=== PATIENT | female | born 1965 | race Caucasian/White ===

== ENCOUNTER 2018-06-03 17:02 | Outpatient (REF) | payer OTHER, SELFPAY ==
--- NOTE | 2018-06-03 16:00 | ENDOMET_PTH ---
PATIENT: KATHY DAVIS LOC: [facility] U#:[id number] AGE/SX: 53/F ROOM: RE06/03/[address]: Robert Allen MD : [id number] BED: DIS: 06/03/2018 SPEC #: [id number] RECD: 06/03/18 18:44 STATUS: ARY REQ #: [id number] SANDIP: 06/03/18 16:[address]: Robert Allen DEPT: Surgical Specimen RECD BY: Tawana Tay ENTERED: 06/03/18 18:45 SP TYPE: Endomet OTHR DR: Dionisio Martin MD Tissues: 1 - ENDOMETRIUM BX/CURRETTE Procedures: GROSS AND MICRO LEVEL 4 Comments: [id number]
== END 2018-06-03 17:22 ==
LOC: LBN 17:02
PROVIDERS: PCP Family Medicine; Visit Provider Obstetrics & Gynecology
DX: N85.8 Other specified noninflammatory disorders of uterus (principal); N92.0 Excessive and frequent menstruation with regular cycle
CPT/HCPCS: 88305

== ENCOUNTER 2018-06-14 09:08 | Outpatient (CLI) | payer OTHER, SELFPAY ==
[2018-06-14 13:19] LABS: Abs Immature Grans 0.01 k/cumm (0.0-0.09); Absolute Basophil Count 0.03 k/cumm (0.0-0.2); Absolute Eosinophil Count 0.14 k/cumm (0.0-0.7); Absolute Lymphocyte Count 1.78 k/cumm (1.2-3.4); Absolute Monocyte Count 0.61 k/cumm (0.11-0.7); Absolute Neutrophil Count 3.35 k/cumm (1.2-6.7); Basophils % 0.5; Eosinophils % 2.4; HCT 35.9 % (36.0-46.0); HGB 11.7 g/dL (12.0-15.5); Immature Grans % 0.2; Lymphocytes % 30.1; Mean Corp. HGB Concentration 32.6 g/dL (32.0-36.0); Mean Corpuscular Hemoglobin 33.3 pg (27.0-33.0); Mean Corpuscular Volume 102.3 fL (80-95); Mean Platelet Volume 10.3 fL (8.0-11.0); Monocytes % 10.3; Neutrophils % 56.5; Platelet Count 247 x1000/uL (130-400); RBC 3.51 m/cumm (4.00-5.20); RBC Distribution Width 13.7 % (11.7-14.6); White Blood Cell Count 5.92 k/cumm (4.4-10.8)
[2018-06-14 13:35] LABS: ALT 54 U/L (12-78); AST 43 U/L (15-37); Albumin 3.4 g/dL (3.4-5.0); Alkaline Phosphatase 72 U/L (46-116); Anion Gap 8.8 mmol/L (3-11); BUN 9 mg/dL (7-18); Bilirubin, Total 0.3 mg/dL (0.2-1.0); CO2 28.2 mmol/L (21.0-32.0); CREATININE 0.79 mg/dL (0.55-1.02); Chloride 105 mmol/L (98-107); Glucose 107 mg/dL (70-100); Potassium 3.5 mmol/L (3.5-5.1); Sodium 142 mmol/L (136-145); Total Protein 7.3 g/dL (6.4-8.2)
== END 2018-06-14 09:28 ==
PROVIDERS: PCP Family Medicine; Visit Provider Internal Medicine Medical Oncology
DX: C49.A3 Gastrointestinal stromal tumor of small intestine (principal)
CPT/HCPCS: 36415; 80053; 85025

== ENCOUNTER 2018-07-24 19:36 | Emergency (ER) | payer OTHER, SELFPAY ==
[2018-07-24 19:45] VITALS: BP 140/85; PULSE 85; RESP 20; TEMP 36.6; O2SAT 99
--- NOTE | 2018-07-24 19:59 | W.ED.GENAD ---
Discharge Plan Disposition Patient Disposition: HOME Condition: Fair Discharge Details Chief Complaint: Orthopedic Clinical Impression: Left wrist sprain Reason For Visit: left arm pain Primary Care Provider: Dionisio Martin ED Provider: Soheila Gruber Home Meds and New Rx's Prescriptions: Continue norethindrone acetate [Aygestin] 5 mg tablet 10 mg PO BID Qty: 90 RF: 1 multivitamin [Daily Multi-Vitamin] 1 EACH tablet 1 ea PO DAILY Qty: 90 RF: 3 imatinib [Gleevec] 400 MG tablet 1 tab PO DAILY RF: 0 PROVENTIL HFA 18 GM HFA.AER.AD 1 - 2 puff Inhalation Q4H PRN Qty: 1 RF: 0 fluticasone 16 GM spray,suspension 2 spry NS DAILY Qty: 3 RF: 3 fluoxetine [Prozac] 40 MG capsule 40 mg PO DAILY Qty: 90 RF: 3 triamterene-hydrochlorothiazid [Dyazide] 1 EACH capsule 1 tab-cap PO DAILY Qty: 90 RF: 3 lisinopril 10 MG tablet 10 mg PO DAILY 90 Days Qty: 90 RF: 3 fluoxetine [Prozac] 20 MG capsule 20 mg PO DAILY Qty: 90 RF: 3 fenofibrate nanocrystallized [Tricor] 48 MG tablet 48 mg PO DAILY Qty: 90 RF: 3 meclizine 25 mg tablet 25 mg PO TID PRNQty: 30 RF: 2 ferrous sulfate 325 MG tablet 325 mg PO DAILY Qty: 30 RF: 3 Discharge Instructions Instructions: Wrist Sprain (ED) Additional Instructions: Keep splint on until evaluated by primary care. Encourage rest, ice, elevation. Tylenol and/or Ibuprofen as needed for discomfort. If you develop new/worsening symptoms please seek care urgently once again. Please follow up with primary care in one week for reevaluation of your scaphoid discomfort. Referrals: Dionisio Martin [Primary Care Provider] - Medical Decision Making Patient is a 53 year old RHD female, accompanied by , with c/c of left wrist pain after FOOSH. Reprots that she slipped in the mud while [id number]. Denies other injury. No LOC, did not strike her head. Denies SOB, CP, pain in neck or her back. Denies altered sensation. Pain primarily along the lateral aspect. I am concerned that she is mildly tender over the snuff box, pain is maximal over the distal radius. Tripp has history of left wrist fracture 30 years ago. Plan to obtain XR. Patient has on wedding rings with notable swelling of the affected digit. Unable to remove rings. Discussed with her the need to cut these. She is in agreement. Nursing staff and myself cut wedding rings, patient has good capillary refill of the affected digit. She tolerated this well. Patient given Tylenol and Ibuprofen for discomfort. Obtained XR of affected wrist with navicular view. Reviewed by radiologist. No acute osseous findings noted. Soft tissue swelling noted, especially about the fourth digit. Discussed findings with the patient. No acute abnormality noted. However, as she is tender over the snuff box, plan to place patient in a thumb spica until she is able to be reevaluated in one week by PCP. We discussed concerning pathology. Encouraged rest, ice, elevation. Tylenol and /or Ibuprofen as needed for discomfort. Advised she seek care urgently once again with any new/worsening symptoms. All of her questions and concerns were addressed, she is in agreement with this plan. [facility] General Mode of arrival: ambulatory. Date/Time Provider Initiated Documentation: 07/24/18 19:37. Limitations to Documentation: no limitations. Information obtained by: patient and family. History of Present Illness 53 year old F presents to the emergency department with the chief complaint of left wrist pain after FOOSH, described as moderate, with intensity rated at 8. Quality is described as sharp, and is localized to the left and upper extremity. Patient reports no radiation. Patient started experiencing this minute(s) and it has been constant. No relieving factors improve symptom(s), Movement worsens symptoms . Patient notes no other symptoms.; denies chest pain, fever/chills, headaches, nausea/vomiting, rash, syncope and weakness. Patient did receive the following treatments prior to arrival, none Related Data Home Medications Medication Instructions Recorded Confirmed multivitamin [Daily Multi-Vitamin] 1 ea PO DAILY #90 tab-cap 09/23/14 06/14/18 ferrous sulfate 325 mg PO DAILY #30 tab 01/12/16 06/14/18 imatinib [Gleevec] 1 tab PO DAILY 07/13/17 06/14/18 fluticasone 2 spry NS DAILY #3 bottle 09/11/17 06/14/18 fenofibrate nanocrystallized 48 mg PO DAILY #90 tab-cap 03/29/18 06/14/18 [Tricor] fluoxetine [Prozac] 20 mg PO DAILY #90 tab-cap 03/29/18 06/14/18 fluoxetine [Prozac] 40 mg PO DAILY #90 tab-cap 03/29/18 06/14/18 lisinopril 10 mg PO DAILY 90 Days #90 tab-cap 03/29/18 06/14/18 triamterene-hydrochlorothiazid 1 tab-cap PO DAILY #90 tab-cap 03/29/18 06/14/18 [Dyazide] norethindrone acetate 5 mg tablet 10 mg PO BID #90 tab 06/03/18 06/14/18 meclizine 25 mg tablet 25 mg PO TID PRN #30 tab-cap 06/14/18 06/14/18 Previous Rx's Medication Instructions Recorded ferrous sulfate 325 mg PO DAILY #30 tab 01/12/16 fluticasone 2 spry NS DAILY #3 bottle 09/11/17 fenofibrate nanocrystallized 48 mg PO DAILY #90 tab-cap 03/29/18 [Tricor] fluoxetine [Prozac] 20 mg PO DAILY #90 tab-cap 03/29/18 fluoxetine [Prozac] 40 mg PO DAILY #90 tab-cap 03/29/18 lisinopril 10 mg PO DAILY 90 Days #90 tab-cap 03/29/18 triamterene-hydrochlorothiazid 1 tab-cap PO DAILY #90 tab-cap 03/29/18 [Dyazide] norethindrone acetate 5 mg tablet 10 mg PO BID #90 tab 06/03/18 Allergies Allergy/AdvReac Type Severity Reaction Status Date / Time No Known Allergies Allergy Unverified 06/14/18 15:14 General Stated Complaint: Orthopedic COLEEN: 3 Review of Systems Constitutional Reports as per HPI, Denies headache(s) and Denies weakness ENT Denies headache(s) Cardiovascular Reports as per HPI and Denies syncope Respiratory Reports as per HPI and Denies cough Musculoskeletal Reports as per HPI, Denies numbness and Denies tingling Integumentary/Breasts Reports as per HPI, Denies erythema, Denies rash, Denies skin swelling and Denies unusual bruising Neurologic Denies syncope, Denies headache(s), Denies focal weakness, Denies numbness, Denies radicular pain, Denies tingling and Denies weakness PFSH Family History Mother Diabetes Father COPD (chronic obstructive pulmonary disease) Brother Cerebrovascular accident Social History Smoking/Tobacco Use Status: Never Surgical History Dilation and curettage Endometrial Ablation (~2007) Excision, Tumor (06/20/16) Ligation of fallopian tube Exam Const General: cooperative, healthy appearing, uncomfortable (patient appears uncomfortable, is splinting her left wrist), no acute distress, well developed and well groomed Nutritional Appearance: well nourished Orientation: alert and awake HENMT Head: normal to inspection and normocephalic Ears: hearing grossly normal bilaterally Eyes General: appearance normal, both eyes and all related structures Resp Effort & Inspection: normal respiratory effort, able to speak in complete sentences and no respiratory distress Cardio Rate: regular rate Rhythm: regular rhythm Skin General skin exam: no rashes or lesions noted Lesions: no lesions Rashes: no rashes Trauma: no lacerations or abrasions Neuro General: alert and awake Cognition: normal cognition Speech: speech normal Gait: normal gait Sensory Exam: no sensory deficits noted Extrem Left upper extremity: normal capillary refill and hand (no pain with palpation of the hand); abnormal to inspection (patient has swelling and pain over the radial aspect of the left wrist. Limited ROM secondary to pain. Minimal pain over the snuff box, pain worse proximal to this but reports it radiates into the thumb. Sensation intact. Swelling noted into the ring finger, has rings on. ), no cyanosis and joint enlargement noted Psych Appearance: grossly normal and well kempt Mental Status: mental status grossly normal Speech and Movement: speech and movement normal Course Vital Signs Temperature 36.6 C 07/24/18 19:45 Pulse 85 07/24/18 19:45 Respiratory Rate 20 07/24/18 19:45 Blood Pressure 140/85 07/24/18 19:45 Pulse Oximetry 99 07/24/18 19:45 Temperature 36.6 C 07/24/18 19:45 Temperature Source Temporal Artery Scan 07/24/18 19:45 Pulse 85 07/24/18 19:45 Respiratory Rate 20 07/24/18 19:45 Respiratory Effort 07/24/18 19:47 Blood Pressure 140/85 07/24/18 19:45 Blood Pressure Position Supine 07/24/18 19:45 Pulse Oximetry 99 07/24/18 19:45 Oxygen Delivery Method Room Air 07/24/18 19:45 Oxygen Flow Rate 0 07/24/18 19:45 Pain Level 8 07/24/18 19:45
--- NOTE | 2018-07-24 20:02 | ED.GENADUL_ITS ---
Discharge Plan Disposition Patient Disposition: HOME Condition: Fair Discharge Details Chief Complaint: Orthopedic Clinical Impression: Left wrist sprain Reason For Visit: left arm pain Primary Care Provider: Dionisio Martin ED Provider: Soheila Gruber Home Meds and New Rx's Prescriptions: Continue norethindrone acetate [Aygestin] 5 mg tablet 10 mg PO BID Qty: 90 RF: 1 multivitamin [Daily Multi-Vitamin] 1 EACH tablet 1 ea PO DAILY Qty: 90 RF: 3 imatinib [Gleevec] 400 MG tablet 1 tab PO DAILY RF: 0 PROVENTIL HFA 18 GM HFA.AER.AD 1 - 2 puff Inhalation Q4H PRN Qty: 1 RF: 0 fluticasone 16 GM spray,suspension 2 spry NS DAILY Qty: 3 RF: 3 fluoxetine [Prozac] 40 MG capsule 40 mg PO DAILY Qty: 90 RF: 3 triamterene-hydrochlorothiazid [Dyazide] 1 EACH capsule 1 tab-cap PO DAILY Qty: 90 RF: 3 lisinopril 10 MG tablet 10 mg PO DAILY 90 Days Qty: 90 RF: 3 fluoxetine [Prozac] 20 MG capsule 20 mg PO DAILY Qty: 90 RF: 3 fenofibrate nanocrystallized [Tricor] 48 MG tablet 48 mg PO DAILY Qty: 90 RF: 3 meclizine 25 mg tablet 25 mg PO TID PRNQty: 30 RF: 2 ferrous sulfate 325 MG tablet 325 mg PO DAILY Qty: 30 RF: 3 Discharge Instructions Instructions: Wrist Sprain (ED) Additional Instructions: Keep splint on until evaluated by primary care. Encourage rest, ice, elevation. Tylenol and/or Ibuprofen as needed for discomfort. If you develop new/ worsening symptoms please seek care urgently once again. Please follow up with primary care in one week for reevaluation of your scaphoid discomfort. Referrals: Dionisio Martin [Primary Care Provider] - Medical Decision Making Patient is a 53 year old RHD female, accompanied by , with c/c of left wrist pain after FOOSH. 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 Denies other injury. No LOC, did not strike her head. Denies SOB, CP , pain in neck or her back. Denies altered sensation. Pain primarily along the lateral aspect. I am concerned that she is mildly tender over the snuff box , pain is maximal over the distal radius. Tripp has history of left wrist fracture 30 years ago. Plan to obtain XR. Patient has on wedding rings with notable swelling of the affected digit. Unable to remove rings. Discussed with her the need to cut these. She is in agreement. Nursing staff and myself cut wedding rings, patient has good capillary refill of the affected digit. She tolerated this well. Patient given Tylenol and Ibuprofen for discomfort. Obtained XR of affected wrist with navicular view. Reviewed by radiologist. No acute osseous findings noted. Soft tissue swelling noted, especially about the fourth digit. Discussed findings with the patient. No acute abnormality noted. However, as she is tender over the snuff box, plan to place patient in a thumb spica until she is able to be reevaluated in one week by PCP. We discussed concerning pathology. Encouraged rest, ice, elevation. Tylenol and /or Ibuprofen as needed for discomfort. Advised she seek care urgently once again with any new/ worsening symptoms. All of her questions and concerns were addressed, she is in agreement with this plan. [facility] General Mode of arrival: ambulatory . Date/Time Provider Initiated Documentation: 07/24/18 19:37 . Limitations to Documentation: no limitations . Information obtained by: patient and family . History of Present Illness 53 year old F presents to the emergency department with the chief complaint of left wrist pain after FOOSH, described as moderate, with intensity rated at 8. Quality is described as sharp, and is localized to the left and upper extremity. Patient reports no radiation. Patient started experiencing this minute(s) and it has been constant. No relieving factors improve symptom(s) , Movement worsens symptoms . Patient notes no other symptoms.; denies chest pain, fever/chills, headaches, nausea/vomiting, rash, syncope and weakness. Patient did receive the following treatments prior to arrival, none Related Data Home Medications Medication Instructions Recorded Confirmed multivitamin [Daily Multi-Vitamin] 1 ea PO DAILY #90 tab-cap 09/23/14 06/14/18 ferrous sulfate 325 mg PO DAILY #30 tab 01/12/16 06/14/18 imatinib [Gleevec] 1 tab PO DAILY 07/13/17 06/14/18 fluticasone 2 spry NS DAILY #3 bottle 09/11/17 06/14/18 fenofibrate nanocrystallized 48 mg PO DAILY #90 tab-cap 03/29/18 06/14/18 [Tricor] fluoxetine [Prozac] 20 mg PO DAILY #90 tab-cap 03/29/18 06/14/18 fluoxetine [Prozac] 40 mg PO DAILY #90 tab-cap 03/29/18 06/14/18 lisinopril 10 mg PO DAILY 90 Days #90 tab-cap 03/29/18 06/14/18 triamterene-hydrochlorothiazid 1 tab-cap PO DAILY #90 tab-cap 03/29/18 06/14/18 [Dyazide] norethindrone acetate 5 mg tablet 10 mg PO BID #90 tab 06/03/18 06/14/18 meclizine 25 mg tablet 25 mg PO TID PRN #30 tab-cap 06/14/18 06/14/18 Previous Rx's Medication Instructions Recorded ferrous sulfate 325 mg PO DAILY #30 tab 01/12/16 fluticasone 2 spry NS DAILY #3 bottle 09/11/17 fenofibrate nanocrystallized 48 mg PO DAILY #90 tab-cap 03/29/18 [Tricor] fluoxetine [Prozac] 20 mg PO DAILY #90 tab-cap 03/29/18 fluoxetine [Prozac] 40 mg PO DAILY #90 tab-cap 03/29/18 lisinopril 10 mg PO DAILY 90 Days #90 tab-cap 03/29/18 triamterene-hydrochlorothiazid 1 tab-cap PO DAILY #90 tab-cap 03/29/18 [Dyazide] norethindrone acetate 5 mg tablet 10 mg PO BID #90 tab 06/03/18 Allergies Allergy/AdvReac Type Severity Reaction Status Date / Time No Known Allergies Allergy Unverified 06/14/18 15:14 General Stated Complaint: Orthopedic COLEEN: 3 Review of Systems Constitutional Reports as per HPI, Denies headache(s) and Denies weakness ENT Denies headache(s) Cardiovascular Reports as per HPI and Denies syncope Respiratory Reports as per HPI and Denies cough Musculoskeletal Reports as per HPI, Denies numbness and Denies tingling Integumentary/Breasts Reports as per HPI, Denies erythema, Denies rash, Denies skin swelling and Denies unusual bruising Neurologic Denies syncope, Denies headache(s), Denies focal weakness, Denies numbness, Denies radicular pain, Denies tingling and Denies weakness PFSH Family History Mother Diabetes Father COPD (chronic obstructive pulmonary disease) Brother Cerebrovascular accident Social History Smoking/Tobacco Use Status: Never Surgical History Dilation and curettage Endometrial Ablation (~2007) Excision, Tumor (06/20/16) Ligation of fallopian tube Exam Const General: cooperative, healthy appearing, uncomfortable (patient appears uncomfortable, is splinting her left wrist), no acute distress, well developed and well groomed Nutritional Appearance: well nourished Orientation: alert and awake HENMT Head: normal to inspection and normocephalic Ears: hearing grossly normal bilaterally Eyes General: appearance normal, both eyes and all related structures Resp Effort & Inspection: normal respiratory effort, able to speak in complete sentences and no respiratory distress Cardio Rate: regular rate Rhythm: regular rhythm Skin General skin exam: no rashes or lesions noted Lesions: no lesions Rashes: no rashes Trauma: no lacerations or abrasions Neuro General: alert and awake Cognition: normal cognition Speech: speech normal Gait: normal gait Sensory Exam: no sensory deficits noted Extrem Left upper extremity: normal capillary refill and hand (no pain with palpation of the hand); abnormal to inspection (patient has swelling and pain over the radial aspect of the left wrist. Limited ROM secondary to pain. Minimal pain over the snuff box, pain worse proximal to this but reports it radiates into the thumb. Sensation intact. Swelling noted into the ring finger, has rings on. ), no cyanosis and joint enlargement noted Psych Appearance: grossly normal and well kempt Mental Status: mental status grossly normal Speech and Movement: speech and movement normal Course Vital Signs Temperature 36.6 C 07/24/18 19:45 Pulse 85 07/24/18 19:45 Respiratory Rate 20 07/24/18 19:45 Blood Pressure 140/85 07/24/18 19:45 Pulse Oximetry 99 07/24/18 19:45 Temperature 36.6 C 07/24/18 19:45 Temperature Source Temporal Artery Scan 07/24/18 19:45 Pulse 85 07/24/18 19:45 Respiratory Rate 20 07/24/18 19:45 Respiratory Effort 07/24/18 19:47 Blood Pressure 140/85 07/24/18 19:45 Blood Pressure Position Supine 07/24/18 19:45 Pulse Oximetry 99 07/24/18 19:45 Oxygen Delivery Method Room Air 07/24/18 19:45 Oxygen Flow Rate 0 07/24/18 19:45 Pain Level 8 07/24/18 19:45
[2018-07-24] MEDS: Ibuprofen 600 MG TAB (20:04)
[2018-07-24] MEDS: Acetaminophen 500 MG TAB 1000 MG (20:04)
--- NOTE | 2018-07-24 20:08 | DI.RAD_ITS ---
SYMPTOMS/DIAGNOSIS: FALL ON OUTSTRETCHED HAND LEFT WRIST: There is no evidence of a fracture or dislocation.
--- NOTE | 2018-07-24 20:46 | DI.VRAD_ITS ---
EXAM: XR Left Wrist Complete, 3 or more Views EXAM DATE/TIME: 07/24/2018 7:59 PM CLINICAL HISTORY: 53 years old, female; Injury or trauma; Fall; Initial encounter; Swelling (edema); Wrist; Left; Patient HX: S/P fall on out stretched arm. TECHNIQUE: XR Left wrist 3 or more views. COMPARISON: No relevant prior studies available. FINDINGS: Bones/joints: No acute fracture or subluxation. Soft tissues: Soft tissue swelling is noted especially about the fourth digit. IMPRESSION: No acute osseous findings. Dictated and Authenticated by: Tin Good MD. Ordering:CELIA MASESY MD
== END 2018-07-24 21:06 | disposition home or self-care (01) ==
PROVIDERS: Emergency Provider Physician Assistant; PCP Family Medicine
DX: S63.502A Unspecified sprain of left wrist, initial encounter (principal); W01.0XXA Fall on same level from slipping, tripping and stumbling without subsequent striking against object, initial encounter
CPT/HCPCS: 29125; 99283; 73110; 99282; L3807

== ENCOUNTER 2018-08-05 14:54 | Outpatient (CLI) | payer OTHER, SELFPAY ==
--- NOTE | 2018-08-05 14:38 | DI.RAD_ITS ---
SYMPTOM/DIAGNOSIS: LEFT WRIST INJURY, F/U FILMS TO ? SCAPHOID FX S69.92XA LEFT WRIST: Four views. Comparison 07/24/18 On the lateral view there is a lucency seen at the posterior and distal aspect of the radius suspicious for a nondisplaced fracture. No other fracture or dislocation is seen in the wrist. The soft tissues are unremarkable. IMPRESSION: Question of a nondisplaced fracture involving the posterior aspect of the distal left radius. CT scan of the wrist may be considered for further evaluation.
== END 2018-08-05 15:14 ==
PROVIDERS: PCP Family Medicine; Visit Provider Family Medicine
DX: S69.92XA Unspecified injury of left wrist, hand and finger(s), initial encounter (principal); R93.7 Abnormal findings on diagnostic imaging of other parts of musculoskeletal system
CPT/HCPCS: 73110

== ENCOUNTER 2018-08-07 00:47 | Outpatient (CLI) | payer OTHER, SELFPAY ==
--- NOTE | 2018-08-07 12:59 | DI.CT_ITS ---
SYMPTOMS/DIAGNOSIS: ? OF A NONDISPLACED FX OF RADIUS, S69.92XA S62.102A, FALL LEFT WRIST CT: CT examination of the wrist was performed utilizing multislice acquisition and multiplanar reconstruction. There is an essentially nondisplaced fracture of the distal most aspect of the radius dorsally. This does involve the articular surface. There is approximately 1 mm or less displacement. The fracture fragment measures roughly 14 x 6 x 3 mm.
== END 2018-08-07 01:07 ==
PROVIDERS: PCP Family Medicine; Visit Provider Family Medicine
DX: S52.502A Unspecified fracture of the lower end of left radius, initial encounter for closed fracture (principal)
CPT/HCPCS: 73200

== ENCOUNTER 2018-10-07 01:24 | Outpatient (CLI) | payer OTHER, SELFPAY ==
[2018-10-07 09:36] LABS: Abs Immature Grans 0.01 k/cumm (0.0-0.09); Absolute Basophil Count 0.02 k/cumm (0.0-0.2); Absolute Eosinophil Count 0.11 k/cumm (0.0-0.7); Absolute Monocyte Count 0.52 k/cumm (0.11-0.7); Absolute Neutrophil Count 2.82 k/cumm (1.2-6.7); Basophils % 0.4; Eosinophils % 2.2; HCT 36.4 % (36.0-46.0); HGB 11.9 g/dL (12.0-15.5); Immature Grans % 0.2; Lymphocytes % 31.5; Mean Corp. HGB Concentration 32.7 g/dL (32.0-36.0); Mean Corpuscular Hemoglobin 33.4 pg (27.0-33.0); Mean Corpuscular Volume 102.2 fL (80-95); Mean Platelet Volume 10.7 fL (8.0-11.0); Monocytes % 10.2; Neutrophils % 55.5; Platelet Count 233 x1000/uL (130-400); RBC 3.56 m/cumm (4.00-5.20); RBC Distribution Width 13.1 % (11.7-14.6); White Blood Cell Count 5.08 k/cumm (4.4-10.8)
[2018-10-07 09:51] LABS: CREATININE 0.83 mg/dL (0.55-1.02)
[2018-10-07] MEDS: Omnipaque 350 MG/ML 100 ML BTL IJ (10:28)
[2018-10-07] MEDS: Omnipaque 350 MG/ML 50 ML BTL PO (10:29)
[2018-10-07] MEDS: Breeza Beverage 473 ML BTL PO ×2 (10:29→10:30)
--- NOTE | 2018-10-07 10:29 | DI.CT_ITS ---
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 Images were performed from the lung bases through the ischial tuberosities after IV and oral contrast. CHEST CT: The lungs are clear throughout. No infiltrate, effusion or pulmonary nodules are seen. There are no enlarged hilar or mediastinal lymph nodes. No suspicious bony abnormalities are seen. IMPRESSION: No evidence of metastatic disease in the chest. ABDOMEN AND PELVIC CT: The liver again appears enlarged. No focal lesions or biliary dilatation is seen. The gallbladder, spleen, pancreas, adrenals and kidneys are unremarkable. The uterus is again noted to be enlarged with multiple fibroids. An IUD is now seen which appears to be positioned low in the cervical region in a transverse orientation. The ovaries and bladder are unremarkable. There are a few scattered diverticula in the sigmoid colon. There is no abnormal bowel mass, dilatation or inflammatory change. The appendix appears normal. No adenopathy is seen. IMPRESSION: No evidence of metastatic disease in the abdomen or pelvis. An IUD is now seen which appears to be positioned in the cervix.
[2018-10-07 10:30] LABS: ALT 63 U/L (12-78); AST 31 U/L (15-37); Albumin 3.6 g/dL (3.4-5.0); Alkaline Phosphatase 53 U/L (46-116); Anion Gap 7.1 mmol/L (3-11); BUN 16 mg/dL (7-18); Bilirubin, Total 0.4 mg/dL (0.2-1.0); CO2 27.9 mmol/L (21.0-32.0); Calcium 8.9 mg/dL (8.5-10.1); Chloride 106 mmol/L (98-107); Glucose 92 mg/dL (70-100); Potassium 3.5 mmol/L (3.5-5.1); Sodium 141 mmol/L (136-145); Total Protein 7.2 g/dL (6.4-8.2)
== END 2018-10-07 01:44 ==
PROVIDERS: PCP Family Medicine; Visit Provider Internal Medicine Medical Oncology
DX: C49.A3 Gastrointestinal stromal tumor of small intestine (principal); Z12.89 Encounter for screening for malignant neoplasm of other sites; Z98.890 Other specified postprocedural states; Z97.5 Presence of (intrauterine) contraceptive device
CPT/HCPCS: 36415; 74177; 80053; 71260; 85025; J3490; Q9967

== ENCOUNTER 2019-01-03 09:14 | Outpatient (CLI) | payer OTHER, SELFPAY ==
[2019-01-03 09:44] LABS: Abs Immature Grans 0.01 k/cumm (0.0-0.09); Absolute Basophil Count 0.03 k/cumm (0.0-0.2); Absolute Eosinophil Count 0.12 k/cumm (0.0-0.7); Absolute Lymphocyte Count 1.58 k/cumm (1.2-3.4); Absolute Monocyte Count 0.55 k/cumm (0.11-0.7); Absolute Neutrophil Count 2.91 k/cumm (1.2-6.7); Basophils % 0.6; Eosinophils % 2.3; HCT 38.7 % (36.0-46.0); HGB 12.6 g/dL (12.0-15.5); Immature Grans % 0.2; Lymphocytes % 30.4; Mean Corp. HGB Concentration 32.6 g/dL (32.0-36.0); Mean Corpuscular Hemoglobin 32.6 pg (27.0-33.0); Mean Platelet Volume 10.1 fL (8.0-11.0); Monocytes % 10.6; Neutrophils % 55.9; Platelet Count 247 x1000/uL (130-400); RBC 3.87 m/cumm (4.00-5.20); RBC Distribution Width 14.3 % (11.7-14.6)
[2019-01-03 10:03] LABS: ALT 30 U/L (12-78); AST 26 U/L (15-37); Albumin 3.8 g/dL (3.4-5.0); Alkaline Phosphatase 66 U/L (46-116); Anion Gap 9.8 mmol/L (3-11); BUN 15 mg/dL (7-18); Bilirubin, Total 0.6 mg/dL (0.2-1.0); CO2 29.2 mmol/L (21.0-32.0); CREATININE 0.94 mg/dL (0.55-1.02); Calcium 9.1 mg/dL (8.5-10.1); Chloride 100 mmol/L (98-107); Ferritin 330 ng/mL (8-388); Glucose 110 mg/dL (70-100); Potassium 3.9 mmol/L (3.5-5.1); Sodium 139 mmol/L (136-145); Total Protein 7.6 g/dL (6.4-8.2)
== END 2019-01-03 09:34 ==
PROVIDERS: PCP Family Medicine; Visit Provider Internal Medicine Hematology & Oncology
DX: C49.A3 Gastrointestinal stromal tumor of small intestine (principal)
CPT/HCPCS: 36415; 80053; 82728; 85025

== ENCOUNTER 2019-03-31 00:25 | Outpatient (CLI) | payer BC, OTHER, SELFPAY ==
[2019-03-31 10:11] LABS: Abs Immature Grans 0.01 k/cumm (0.0-0.09); Absolute Basophil Count 0.02 k/cumm (0.0-0.2); Absolute Eosinophil Count 0.09 k/cumm (0.0-0.7); Absolute Lymphocyte Count 1.29 k/cumm (1.2-3.4); Absolute Monocyte Count 0.41 k/cumm (0.11-0.7); Absolute Neutrophil Count 2.87 k/cumm (1.2-6.7); Basophils % 0.4; Eosinophils % 1.9; HCT 37.4 % (36.0-46.0); HGB 12.4 g/dL (12.0-15.5); Immature Grans % 0.2; Lymphocytes % 27.5; Mean Corp. HGB Concentration 33.2 g/dL (32.0-36.0); Mean Corpuscular Hemoglobin 33.6 pg (27.0-33.0); Mean Corpuscular Volume 101.4 fL (80-95); Mean Platelet Volume 10.6 fL (8.0-11.0); Monocytes % 8.7; Neutrophils % 61.3; Platelet Count 227 x1000/uL (130-400); RBC 3.69 m/cumm (4.00-5.20); RBC Distribution Width 12.7 % (11.7-14.6); White Blood Cell Count 4.69 k/cumm (4.4-10.8)
[2019-03-31 10:29] LABS: ALT 41 U/L (12-78); AST 24 U/L (15-37); Albumin 3.7 g/dL (3.4-5.0); Alkaline Phosphatase 61 U/L (46-116); Anion Gap 10.2 mmol/L (3-11); BUN 15 mg/dL (7-18); Bilirubin, Total 0.7 mg/dL (0.2-1.0); CO2 25.8 mmol/L (21.0-32.0); CREATININE 0.86 mg/dL (0.55-1.02); Chloride 106 mmol/L (98-107); Glucose 110 mg/dL (70-100); Potassium 3.5 mmol/L (3.5-5.1); Sodium 142 mmol/L (136-145); Total Protein 7.3 g/dL (6.4-8.2)
--- NOTE | 2019-03-31 10:48 | DI.CT_ITS ---
SYMPTOM/DIAGNOSIS: F/U GI STROMAL TUMOR SMALL BOWEL, C49.A3 RESECTED CT CHEST, ABDOMEN AND PELVIS: 03/31 CT examination of the chest, abdomen and pelvis was performed with intravenous infusion of 100 cc Omnipaque 350 and ingestion of dilute barium utilizing biphasic hepatic imaging. The lungs are clear. No pleural effusion. No mediastinal or hilar adenopathy. Tracheobronchial tree appears intact. No supraclavicular or axillary adenopathy. The thoracic aorta is unremarkable. No evidence of pulmonary embolic disease. No hepatic or splenic lesion seen. Apart from tiny low attenuation central hepatic lesion unchanged from previous examination of 10/07/18 probably represents cyst. The pancreas appears normal. Adrenals and kidneys are unremarkable in appearance. No biliary dilatation. Gallbladder is CT normal. Abdominal aorta is of normal diameter and no major vascular abnormality is seen. There is slight prominence of a few portal nodes, no apparent interval change in comparison with 10/07/18 with the largest node measuring about 17 x 11 mm in diameter on coronal imaging. No evidence of bowel obstruction or bowel wall tumor. No mesenteric adenopathy. No significant retroperitoneal adenopathy. Appendix is normal. No evidence of diverticulitis. No significant abdominal wall hernia seen. No pelvic adenopathy seen. Uterus is enlarged and lobulated in appearance with multiple enhancing masses consistent with uterine fibroids. An IUD is noted which appears to be in the lower uterine segment. CONCLUSION: No evidence of metastatic disease of the chest, abdomen or pelvis. Stable mildly prominent visible portal nodes.
[2019-03-31] MEDS: Omnipaque 350 MG/ML 50 ML BTL PO (10:54)
[2019-03-31] MEDS: Omnipaque 350 MG/ML 100 ML BTL IJ (10:54)
[2019-03-31] MEDS: Breeza Beverage 473 ML BTL PO ×2 (10:54→10:55)
== END 2019-03-31 00:45 ==
PROVIDERS: PCP Family Medicine; Visit Provider Internal Medicine Hematology & Oncology
DX: C49.A3 Gastrointestinal stromal tumor of small intestine (principal); D25.9 Leiomyoma of uterus, unspecified; Z97.5 Presence of (intrauterine) contraceptive device; Z12.89 Encounter for screening for malignant neoplasm of other sites
CPT/HCPCS: 74177; 80053; 71260; 85025; J3490; Q9967

== ENCOUNTER 2019-06-23 11:36 | Outpatient (CLI) | payer OTHER, BC, SELFPAY ==
[2019-06-23 12:37] LABS: Abs Immature Grans 0.01 k/cumm (0.0-0.09); Absolute Basophil Count 0.02 k/cumm (0.0-0.2); Absolute Eosinophil Count 0.09 k/cumm (0.0-0.7); Absolute Lymphocyte Count 1.31 k/cumm (1.2-3.4); Absolute Monocyte Count 0.54 k/cumm (0.11-0.7); Absolute Neutrophil Count 3.83 k/cumm (1.2-6.7); Basophils % 0.3; Eosinophils % 1.6; HCT 38.5 % (36.0-46.0); HGB 12.5 g/dL (12.0-15.5); Immature Grans % 0.2; Lymphocytes % 22.6; Mean Corp. HGB Concentration 32.5 g/dL (32.0-36.0); Mean Corpuscular Hemoglobin 32.7 pg (27.0-33.0); Mean Corpuscular Volume 100.8 fL (80-95); Mean Platelet Volume 10.2 fL (8.0-11.0); Monocytes % 9.3; Platelet Count 246 x1000/uL (130-400); RBC 3.82 m/cumm (4.00-5.20); RBC Distribution Width 13.6 % (11.7-14.6)
[2019-06-23 12:48] LABS: ALT 101 U/L (14-59); AST 58 U/L (15-37); Albumin 3.8 g/dL (3.4-5.0); Alkaline Phosphatase 70 U/L (46-116); Anion Gap 10.6 mmol/L (3-11); BUN 13 mg/dL (7-18); Bilirubin, Total 0.7 mg/dL (0.2-1.0); CO2 26.4 mmol/L (21.0-32.0); Calcium 8.8 mg/dL (8.5-10.1); Chloride 104 mmol/L (98-107); Glucose 108 mg/dL (70-100); Potassium 3.4 mmol/L (3.5-5.1); Sodium 141 mmol/L (136-145); Total Protein 7.6 g/dL (6.4-8.2)
== END 2019-06-23 11:56 ==
PROVIDERS: PCP Family Medicine; Visit Provider Internal Medicine Hematology & Oncology
DX: C49.A3 Gastrointestinal stromal tumor of small intestine (principal)
CPT/HCPCS: 36415; 80053; 85025